=== PATIENT | female | born 1970 | race Caucasian/White ===

== ENCOUNTER 2017-10-05 11:51 | Emergency (ER) | payer SELFPAY ==
[2017-10-05 11:53] VITALS: BP 121/89
--- NOTE | 2017-10-05 14:08 | ED ---
Jordan Ash Angela, scribed for Flynn Garcia MD on 10/05/17 at 1203 . Skin Complaint - HPI Summary HPI Summary: This pt is a 47 y/o female presenting to [facility] c/o raised area on left wrist for the past 10 weeks. Pt reports she poked herself with an iris stem in August. She notes the stem was very rigid. Since then the area on her left wrist has been worsening. Pt states she messed with it 1 week ago and got pus out of it. Pt reports the area began to slowly swell. She notes this area is only painful with palpation. Pt went to [facility] and had X-rays done but was referred to the ED as they are unable to open her skin. She is a current smoker. - History of Current Complaint Chief Complaint: EDExtremityUpper Time Seen by Provider: 10/05/17 11:56 Stated Complaint: LEFT WRIST AND HAND INJURY Hx Obtained From: Patient Onset/Duration: Started Weeks Ago, Still Present Skin Exposure Onset/Duration: Weeks Ago Timing: Lasting Weeks Pain Intensity: 10 Pain Scale Used: 0-10 Numeric Skin Location: Arm - left wrist Character: Raised Aggravating Symptom(s): Nothing Alleviating Symptom(s): Nothing Associated Signs & Symptoms: Negative - Allergy/Home Medications Allergies/Adverse Reactions: Allergies Allergy/AdvReac Type Severity Reaction Status Date / Time No Known Allergies Allergy Verified 10/05/17 11:53 PMH/Surg Hx/FS Hx/Imm Hx Endocrine/Hematology History: Denies: Hx Diabetes Cardiovascular History: Denies: Hx Hypertension Infectious Disease History: No Infectious Disease History: Denies: Traveled Outside the [place] in Last 30 Days - Family History Known Family History: Negative: Cardiac Disease - Social History Alcohol Use: None Substance Use Type: Reports: None Smoking Status (MU): Smoker, Current Status Unknown Review of Systems Negative: Fever, Chills Cardiovascular: Negative Respiratory: Negative Gastrointestinal: Negative Genitourinary: Negative Skin: Other - raised area on left wrist. All Other Systems Reviewed And Are Negative: Yes Physical Exam - Summary Physical Exam Summary: Appearance: Well appearing, no pain distress Skin: warm, dry, reflects adequate perfusion. LUE: 3 mm firm keratotic papule on the volar surface of the left wrist without redness or warmth. Head/face: normal Eyes: EOMI, MYESHA ENT: normal Neck: supple, non-tender Respiratory: CTA, breath sounds present Cardiovascular: RRR, pulses symmetrical Abdomen: non-tender, soft Bowel: present Musculoskeletal: normal, strength/ROM intact Neuro: normal, sensory motor intact, A&Ox3 Triage Information Reviewed: Yes Vital Signs On Initial Exam: Initial Vitals Temp Pulse Resp BP Pulse Ox 97.6 F 85 17 121/89 99 10/05/17 11:52 10/05/17 11:52 10/05/17 11:52 10/05/17 11:52 10/05/17 11:52 Vital Signs Reviewed: Yes Procedures - Procedure Summary Procedure Summary: Wound care: Patient presents with foreign body reaction on the left dorsal wrist. This was cleaned with alcohol and unroofed with a blunt edge needle. Minimal amount pressure caused a woody foreign body to erupt from the skin. Skin was then dressed with bacitracin and a Band-Aid. Tolerated this well without competition. Diagnostics - Vital Signs Vital Signs Temp Pulse Resp BP Pulse Ox 10/05/17 11:52 97.6 F 85 17 121/89 99 - Laboratory Lab Statement: Any lab studies that have been ordered have been reviewed, and results considered in the medical decision making process. Re-Evaluation - Re-Evaluation First Eval Re-Evaluation Time: 12:07 Change: Improved Comment: Thorn removed from left wrist. Course/Dx - Course Course Of Treatment: I unroofed the area and a small foreign body came out. No evidence for infection. Assessment/Plan: Bedside US fails to demonstrate foreign body. - Diagnoses Provider Diagnoses: Foreign body in soft tissue Discharge - Sign-Out/Discharge Documenting (check all that apply): Discharge/Admit/Transfer - Discharge - Discharge Plan Condition: Improved Disposition: HOME Patient Education Materials: Soft Tissue Foreign Body in Children (ED) Referrals: Meghana Bolton MD [Primary Care Provider] - Additional Instructions: Dressed with bacitracin and a Band-Aid. Return if worse. - Billing Disposition and Condition Condition: IMPROVED Disposition: Home The documentation as recorded by the Jordan barros Angela accurately reflects the service I personally performed and the decisions made by , Flynn Garcia MD.
== END 2017-10-05 12:21 | disposition home or self-care (01) ==
LOC: ED 11:51
DX: S61.542A Puncture wound with foreign body of left wrist, initial encounter (principal); W45.8XXA Other foreign body or object entering through skin, initial encounter; Y92.9 Unspecified place or not applicable; F17.200 Nicotine dependence, unspecified, uncomplicated
CPT/HCPCS: 99281

== ENCOUNTER → 2018-03-09 18:59 | Emergency (ER) | payer OTHER ==
[~2018-03-09 18:59] MED LIST: Albuterol 2.5 MG/3 ML NEB.SOL* (0.083%) INH ONE; Albuterol HFA INHALER* 8 gm MDI INH ONE; Albuterol HFA INHALER* 8 gm MDI INH SCH; Albuterol/Ipratropium NEB.SOL* Albuterol 2.5 MG/Ipratropium 0.5 MG 3 ML INH ONE; Codeine TAB* 30 MG PO ONE; Ketorolac INJ* 30 MG/ML 1 ML VIAL IV PUSH ONE; Metoclopramide IV* 5 MG/ML 2 ML VIAL IV SLOW PU ONE; NS 0.9% 1000 ML* 1,000 ML IV ONE; diPHENhydraMINE PO* 50 MG PO ONE; methylPREDNISolone 125 MG* 2 ML VIAL IV ONE
[2018-03-09 20:54] LABS: ABS Basophils 0 10^3/ul (0-0.2); ABS Eosinophils 0 10^3/ul (0-0.6); ABS Lymphocytes 0.7 10^3/ul (1.0-4.8); ABS Monocytes 0.4 10^3/ul (0-0.8); ABS Neutrophils 7.5 10^3/ul (1.5-7.7); ABS Nucleated RBC 0 10^3/ul; Eosinophil % 0.3 %; Hematocrit 40 % (35-47); Lymphocyte % 8.4 %; Mean Corpuscular HGB Conc 35 g/dl (31-36); Mean Corpuscular Hemoglobin 35 pg (27-31); Mean Corpuscular Volume 100 fL (80-97); Mean Platelet Volume 8.2 fL (7.4-10.4); Nucleated Red Blood Cells % 0; Platelet Count 178 10^3/ul (150-450); Red Blood Count 3.99 10^6/ul (4.00-5.40); Red Cell Distribution Width 13 % (10.5-15); White Blood Count 8.7 10^3/ul (3.5-10.8)
[2018-03-09 21:11] LABS: EGFR Non-African American 95.2 (>60)
--- NOTE | 2018-03-09 21:18 | ED ---
Respiratory - HPI Summary HPI Summary: This patient is a 47 year old F presenting to [facility] accompanied by friend with a chief complaint of productive cough (yellow phlegm) that began 03/06/2018. The patient rates the pain 10/10 in severity. Symptoms aggravated by nothing. Symptoms alleviated by nothing. Patient reports difficulty sleeping, headache, and abdominal rash. Patient denies vomiting. - History of Current Complaint Chief Complaint: EDGeneral Stated Complaint: COUGH Time Seen by Provider: 03/09/18 21:06 Hx Obtained From: Patient Onset/Duration: Sudden Onset, Lasting Days, Still Present Timing: Constant Initial Severity: Severe Current Severity: Severe Pain Intensity: 10 Character: Cough (Productive) Sputum Amount: Swallowed by Patient Sputum Color: Yellow Aggravating Factor(s): Nothing Alleviating Factor(s): Nothing - Allergy/Home Medications Allergies/Adverse Reactions: Allergies Allergy/AdvReac Type Severity Reaction Status Date / Time No Known Allergies Allergy Verified 03/09/18 19:05 PMH/Surg Hx/FS Hx/Imm Hx Previously Healthy: No Endocrine/Hematology History: Denies: Hx Diabetes Cardiovascular History: Denies: Hx Hypertension Infectious Disease History: No Infectious Disease History: Denies: Traveled Outside the [place] in Last 30 Days - Family History Known Family History: Negative: Cardiac Disease - Social History Occupation: Employed Full-time Lives: With Family Alcohol Use: None Hx Substance Use: No Substance Use Type: Reports: None Hx Tobacco Use: Yes Smoking Status (MU): Current Every Day Smoker Review of Systems Positive: Other - Positive difficulty sleeping Negative: Vomiting Positive: Rash Positive: Headache All Other Systems Reviewed And Are Negative: Yes Physical Exam - Summary Physical Exam Summary: VITAL SIGNS: Reviewed. GENERAL: Patient is a well-developed and nourished female who is lying comfortable in the stretcher. Patient is not in any acute respiratory distress. HEAD AND FACE: No signs of trauma. No ecchymosis, hematomas or skull depressions. No sinus tenderness. EYES: PERRLA, EOMI x 2, No injected conjunctiva, no nystagmus. EARS: Hearing grossly intact. Ear canals and tympanic membranes are within normal limits. MOUTH: Oropharynx within normal limits. NECK: Supple, trachea is midline, no adenopathy, no JVD, no carotid bruit, no c- spine tenderness, neck with full ROM. CHEST: Symmetric, no tenderness at palpation LUNGS: Clear to auscultation bilaterally. No wheezing or crackles. CVS: Regular rate and rhythm, S1 and S2 present, no murmurs or gallops appreciated. ABDOMEN: Soft, non-tender. No signs of distention. No rebound no guarding, and no masses palpated. Bowel sounds are normal. EXTREMITIES: FROM in all major joints, no edema, no cyanosis or clubbing. NEURO: Alert and oriented x 3. No acute neurological deficits. Speech is normal and follows commands. SKIN: Dry and warm Triage Information Reviewed: Yes Vital Signs On Initial Exam: Initial Vitals Temp Pulse Resp BP Pulse Ox 97.3 F 120 20 127/81 96 03/09/18 19:04 03/09/18 19:04 03/09/18 19:04 03/09/18 19:04 03/09/18 19:04 Vital Signs Reviewed: Yes - [place] Coma Scale Best Eye Response: 4 - Spontaneous Best Motor Response: 6 - Obeys Commands Best Verbal Response: 5 - Oriented Coma Scale Total: 15 Diagnostics - Vital Signs Vital Signs Temp Pulse Resp BP Pulse Ox 03/09/18 19:04 97.3 F 120 20 127/81 96 - Laboratory Lab Results: Lab Results 03/09/18 03/09/18 03/09/18 Range/Units 20:37 20:37 20:37 WBC 8.7 (3.5-10.8) 10^3/ul RBC 3.99 L (4.00-5.40) 10^6/ul Hgb 14.0 (12.0-16.0) g/dl Hct 40 (35-47) % MCV 100 H (80-97) fL MCH 35 H (27-31) pg MCHC 35 (31-36) g/dl RDW 13 (10.5-15) % Plt Count 178 (150-450) 10^3/ul MPV 8.2 (7.4-10.4) fL Neut % (Auto) 85.8 % Lymph % (Auto) 8.4 % [place] % (Auto) 5.0 % Eos % (Auto) 0.3 % Baso % (Auto) 0.5 % Absolute Neuts (auto) 7.5 (1.5-7.7) 10^3/ul Absolute Lymphs (auto) 0.7 L (1.0-4.8) 10^3/ul Absolute Monos (auto) 0.4 (0-0.8) 10^3/ul Absolute Eos (auto) 0 (0-0.6) 10^3/ul Absolute Basos (auto) 0 (0-0.2) 10^3/ul Absolute Nucleated RBC 0 10^3/ul Nucleated RBC % 0 Sodium 131 L (135-145) mmol/L Potassium 3.5 (3.5-5.0) mmol/L Chloride 97 L (101-111) mmol/L Carbon Dioxide 25 (22-32) mmol/L Anion Gap 9 (2-11) mmol/L BUN 5 L (6-24) mg/dL Creatinine 0.66 (0.51-0.95) mg/dL Est GFR ( Amer) 115.2 (>60) Est GFR (Non-Af Amer) 95.2 (>60) BUN/Creatinine Ratio 7.6 L (8-20) Glucose 133 H (70-100) mg/dL Lactic Acid 0.6 (0.5-2.0) mmol/L Calcium 9.0 (8.6-10.3) mg/dL Total Bilirubin 0.40 (0.2-1.0) mg/dL AST 17 (13-39) U/L ALT 17 (7-52) U/L Alkaline Phosphatase 61 (34-104) U/L Total Protein 7.5 (6.4-8.9) g/dL Albumin 4.4 (3.2-5.2) g/dL Globulin 3.1 (2-4) g/dL Albumin/Globulin Ratio 1.4 (1-3) Result Diagrams: 03/09/18 20:37 03/09/18 20:37 Lab Statement: Any lab studies that have been ordered have been reviewed, and results considered in the medical decision making process. - Radiology Chest XR Radiology Interpretation Completed By: Radiologist Summary of Radiographic Findings: CXR reveals, per ED physician, no acute disease. ED physician has reviewed this radiology report. Maxillofacial CT Radiology Interpretation Completed By: Radiologist - Maxillofacial CT reveals, per radiologist, 1. No CT evidence of acute sinusitis. 2. Small retention cyst in the inferior left maxillary sinus. ED physician has reviewed this radiology report. - CT Brain CT CT Interpretation Completed By: Radiologist Summary of CT Findings: Brain CT reveals, per radiologist, no acute intracranial abnormality. ED physician has reviewed this radiology report. - EKG 2016 Cardiac Rate: NL EKG Rhythm: Sinus Rhythm - [address] Segment: Non-Specific Summary of EKG Findings: An EKG taken at 2016 reveals normal sinus rhythm at 95 BPM with nonspecific T wave changes in the inferior leads. Re-Evaluation - Re-Evaluation First Eval Re-Evaluation Time: 22:38 Change: Improved Comment: Discussed results and plan of care with patient. Disposition - Course Course Of Treatment: This patient is a 47 year old F presenting to [facility] accompanied by friend with a chief complaint of productive cough (yellow phlegm ) that began 03/06/2018. Physical Exam Findings: Nml. An EKG taken at 2016 reveals normal sinus rhythm at 95 BPM with nonspecific T wave changes in the inferior leads. CXR reveals, per ED physician, no acute disease. Brain CT reveals, per radiologist, no acute intracranial abnormality. Maxillofacial CT reveals, per radiologist, 1. No CT evidence of acute sinusitis. 2. Small retention cyst in the inferior left maxillary sinus. Bloodwork obtained. In the ED course the patient was given albuterol, duoneb, codeine, ketorolac, fluids, Reglan, and Benadryl. Patient will be discharged with follow up from PCP. The patient is agreeable with this plan. - Diagnoses Provider Diagnoses: Bronchitis Discharge - Sign-Out/Discharge Documenting (check all that apply): Patient Departure - Discharge home - Discharge Plan Condition: Stable Disposition: HOME Prescriptions: Albuterol HFA INHALER* [Ventolin HFA Inhaler*] 2 puff INH Q6H PRN #1 mdi PRN Reason: Sob/Wheezing Codeine TAB* [Codeine Tab*] 30 mg PO Q6H PRN #14 tab MDD 4 PRN Reason: Cough Levofloxacin TAB* [Levaquin TAB*] 750 mg PO DAILY #7 tab predniSONE TAB* [Deltasone 20 MG TAB*] 40 mg PO DAILY #10 tab Patient Education Materials: Albuterol (By breathing), Acute Bronchitis (ED) Referrals: Meghana Bolton MD [Primary Care Provider] - 2 Days Additional Instructions: NO SMOKING RETURN TO THE EMERGENCY DEPARTMENT FOR NEW OR WORSENING SYMPTOMS - Billing Disposition and Condition Condition: STABLE Disposition: Home - Attestation Statements Document Initiated by Gian: Yes Documenting Scribe: Lali Grider Provider For Whom Scribe is Documenting (Include Credential): Dr. Jeimy Cardenas MD Scribe Attestation: I, Lali Grider, scribed for Dr. Jeimy Cardenas MD on 03/10/18 at 0632. Scribe Documentation Reviewed: Yes Provider Attestation: The documentation as recorded by the jesiibeLali accurately reflects the service I personally performed and the decisions made by me, Dr. Jeimy Cardenas MD Status of Scribe Document: Viewed
[2018-03-09 23:21] VITALS: BP 112/79
== END | disposition home or self-care (01) ==
LOC: ED 18:59
DX: J40 Bronchitis, not specified as acute or chronic (principal); R05 Cough; R21 Rash and other nonspecific skin eruption; R51 Headache; F17.210 Nicotine dependence, cigarettes, uncomplicated
CPT/HCPCS: 36415; 70450; 70486; 71046; 80053; 83605; 85025; 87040; 93005; 96361; 96374; 96375; 99284; A9270-GY; J1885; J2765; J2930

== ENCOUNTER 2019-01-04 00:04 | Emergency (ER) | payer OTHER ==
[2019-01-04 01:15] LABS: Urine Appearance Clear; Urine Bacteria Absent (Absent); Urine Bilirubin Negative (Negative); Urine Blood 1+ (Negative); Urine Color Straw; Urine Glucose Negative (Negative); Urine Ketones Negative (Negative); Urine Nitrite Negative (Negative); Urine Protein Negative (Negative); Urine Red Blood Cell Trace(0-2/hpf) (Absent); Urine Specific Gravity 1.002 (1.010-1.030); Urine Squamous Epithelial Cell Present (Absent); Urine Urobilinogen Negative (Negative); Urine White Blood Cell Absent (Absent)
[2019-01-04 01:29] LABS: Urine Benzodiazepine Screen None Detected (None Detect); Urine Opiates Screen None Detected (None Detect)
[2019-01-04 01:45] LABS: ABS Basophils 0.1 10^3/ul (0-0.2); ABS Eosinophils 0.2 10^3/ul (0-0.6); ABS Lymphocytes 2.6 10^3/ul (1.0-4.8); ABS Monocytes 0.5 10^3/ul (0-0.8); ABS Neutrophils 3.6 10^3/ul (1.5-7.7); Eosinophil % 2.5 %; Hematocrit 43 % (35-47); Lymphocyte % 37.3 %; Mean Corpuscular HGB Conc 35 g/dL (31-36); Mean Corpuscular Hemoglobin 35 pg (27-31); Mean Corpuscular Volume 102 fL (80-97); Mean Platelet Volume 7.9 fL (7.4-10.4); Platelet Count 268 10^3/uL (150-450); Red Blood Count 4.25 10^6 /uL (3.70-4.87); Red Cell Distribution Width 13 % (10-15); White Blood Count 6.9 10^3/uL (3.5-10.8)
--- NOTE | 2019-01-04 01:51 | ED ---
Psychiatric Complaint - HPI Summary HPI Summary: Pt is a 48 y/o F presenting to the ED brought in by [facility] on a 9.41. She states her life has been hard recently, including things that her has said to her that has made her very angry. She was on the phone with her friend Bekah, drinking alcohol, and told her that she had a blade near her, was writing an email to her son, and admitted to some thoughts of suicide. Bekah then called the police for the pt. She denies any physical symptoms, such as myalgia or vomiting. She notes prior attempts of suicide, though she cannot remember when the last time was. - History Of Current Complaint Chief Complaint: EDSuicidal Time Seen by Provider: 01/04/19 00:50 Accompanied By: alone Hx Obtained From: Patient Onset/Duration: Gradual Onset, Lasting Hours, Still Present Timing: Hours Severity Initially: Moderate Severity Currently: Moderate Character: Depressed, Angry Aggravating Factor(s): Recent Stress Alleviating Factor(s): Nothing Associated Signs And Symptoms: Positive: Hostile Has Suicidal: Reports: Thoughts, Has Prior Attempt(s) - Allergies/Home Medications Allergies/Adverse Reactions: Allergies Allergy/AdvReac Type Severity Reaction Status Date / Time No Known Allergies Allergy Verified 03/09/18 19:05 PMH/Surg Hx/FS Hx/Imm Hx Previously Healthy: Yes Endocrine/Hematology History: Denies: Hx Diabetes Cardiovascular History: Denies: Hx Hypertension Respiratory History: Denies: Hx Asthma, Hx Chronic Obstructive Pulmonary Disease (COPD) Psychiatric History: Reports: Hx Suicide Attempt Infectious Disease History: Denies: Traveled Outside the [place] in Last 30 Days - Family History Known Family History: Negative: Cardiac Disease - Social History Alcohol Use: None Hx Substance Use: No Substance Use Type: Reports: None Hx Tobacco Use: Yes Smoking Status (MU): Current Every Day Smoker Review of Systems Negative: Vomiting Negative: Myalgia Positive: Depressed, Other - SI All Other Systems Reviewed And Are Negative: Yes Physical Exam - Summary Physical Exam Summary: Pt is a 48 y/o F presenting to the ED brought in by [facility] on a 9.41. She states her life has been hard recently, including things that her has said to her that has made her very angry. She was on the phone with her friend Bekah, drinking alcohol, and told her that she had a blade near her, was writing an email to her son, and admitted to some thoughts of suicide. She denies any physical symptoms, such as myalgia or vomiting. Triage Information Reviewed: Yes Vital Signs On Initial Exam: Initial Vitals Temp Pulse Resp BP Pulse Ox 97.9 F 116 16 129/89 98 01/04/19 01:06 01/04/19 01:06 01/04/19 01:06 01/04/19 01:06 01/04/19 01:06 Vital Signs Reviewed: Yes Procedures - Sedation Patient Received Moderate/Deep Sedation with Procedure: No Diagnostics - Vital Signs Vital Signs Temp Pulse Resp BP Pulse Ox 01/04/19 01:06 97.9 F 116 16 129/89 98 - Laboratory Lab Results: Lab Results 01/04/19 01/04/19 01/04/19 Range/Units 00:57 00:57 01:37 WBC 6.9 (3.5-10.8) 10^3/uL RBC 4.25 (3.70-4.87) 10^6 /uL Hgb 15.0 (12.0-16.0) g/dL Hct 43 (35-47) % MCV 102 H (80-97) fL MCH 35 H (27-31) pg MCHC 35 (31-36) g/dL RDW 13 (10-15) % Plt Count 268 (150-450) 10^3/uL MPV 7.9 (7.4-10.4) fL Neut % (Auto) 52.6 % Lymph % (Auto) 37.3 % [place] % (Auto) 6.8 % Eos % (Auto) 2.5 % Baso % (Auto) 0.8 % Absolute Neuts (auto) 3.6 (1.5-7.7) 10^3/ul Absolute Lymphs (auto) 2.6 (1.0-4.8) 10^3/ul Absolute Monos (auto) 0.5 (0-0.8) 10^3/ul Absolute Eos (auto) 0.2 (0-0.6) 10^3/ul Absolute Basos (auto) 0.1 (0-0.2) 10^3/ul Absolute Nucleated RBC 0.0 10^3/ul Nucleated RBC % 0.0 Urine Color Straw Urine Appearance Clear Urine pH 5.0 (5-9) Ur Specific [place] 1.002 L (1.010-1.030) Urine Protein Negative (Negative) Urine Ketones Negative (Negative) Urine Blood 1+ A (Negative) Urine Nitrate Negative (Negative) Urine Bilirubin Negative (Negative) Urine Urobilinogen Negative (Negative) Ur Leukocyte Esterase Negative (Negative) Urine WBC (Auto) Absent (Absent) Urine RBC (Auto) Trace(0-2/hpf) (Absent) Ur Squamous Epith Cells Present A (Absent) Urine Bacteria Absent (Absent) Urine Glucose Negative (Negative) Urine Opiates Screen None detected (None Detect) Ur Barbiturates Screen None detected (None Detect) Ur Phencyclidine Scrn None detected (None Detect) Ur Amphetamines Screen None detected (None Detect) U Benzodiazepines Scrn None detected (None Detect) Urine Cocaine Screen None detected (None Detect) U Cannabinoids Screen None detected (None Detect) Result Diagrams: 01/04/19 01:37 01/04/19 01:37 Lab Statement: Any lab studies that have been ordered have been reviewed, and results considered in the medical decision making process. Course/Dx - Course Course Of Treatment: Patient is here with alcohol intoxication and suicidal ideation. Patient was writing a suicide note to her son with a plan of slitting her wrists when her friend intervened and called the police. Patient is brought in on at 941. Patient was clearly intoxicated upon arrival with an alcohol level of 191. Patient is medically cleared after she sobered up. Patient signed out to the oncoming physician pending mental health evaluation. - Differential Dx/Clinical Impression Provider Diagnosis: Alcohol intoxication, Suicidal thoughts Discharge ED - Sign-Out/Discharge Documenting (check all that apply): Sign-Out Patient - pend E Signing out patient TO: Jewel Michelle - Discharge Plan Condition: Stable Referrals: Meghana Bolton MD [Primary Care Provider] - - Billing Disposition and Condition Condition: STABLE - Attestation Statements Document Initiated by Scribe: Yes Documenting Scribe: Pamela Pulido Provider For Whom Gian is Documenting (Include Credential): Sinan Mejia MD. Scribe Attestation: Pamela Ash, scribed for Sinan Mejia MD. on 01/04/19 at 0655. Scribe Documentation Reviewed: Yes Provider Attestation: The documentation as recorded by the scribe, Pamela Pulido accurately reflects the service I personally performed and the decisions made by me, Sinan Mejia MD. Status of Jacquiibceline Document: Viewed
[2019-01-04 02:03] LABS: ALT 22 U/L (7-52); AST 23 U/L (13-39); Albumin 4.7 g/dL (3.2-5.2); Albumin/Globulin Ratio 1.6 (1-3); Alkaline Phosphatase 63 U/L (34-104); Anion Gap 8 mmol/L (2-11); BUN/Creatinine Ratio 9.2 (8-20); Blood Urea Nitrogen 7 mg/dL (6-24); CO2 Carbon Dioxide 26 mmol/L (22-32); Calcium 9.5 mg/dL (8.6-10.3); Chloride 106 mmol/L (101-111); EGFR African American 97.5 (>60); EGFR Non-African American 80.6 (>60); Globulin 2.9 g/dL (2-4); Glucose 115 mg/dL (70-100); Potassium 4.3 mmol/L (3.5-5.0); Sodium 140 mmol/L (135-145); Total Protein 7.6 g/dL (6.4-8.9)
[2019-01-04 02:08] LABS: HCG Pregnancy < 0.60 mIU/mL
[2019-01-04 02:39] LABS: Alcohol 191 mg/dL (<10)
--- NOTE | 2019-01-04 07:12 | ED ---
Progress - Progress Note Progress Note: Pt is a sign-out from Dr. Mejia at 07:00 on 01/04/19; shift change. Pt is cleared by [facility]. At 09:19, associate store manager reports the pt's case was reviewed by Dr. Mcbride. Pt will be discharged home with a diagnosis of distubance of mood and conduct, alcohol intoxication, and substance abuse disorder. Course/Dx - Course Course Of Treatment: Patient is here with alcohol intoxication and suicidal ideation. Patient was writing a suicide note to her son with a plan of slitting her wrists when her friend intervened and called the police. Patient is brought in on at 941. Patient was clearly intoxicated upon arrival with an alcohol level of 191. Patient is medically cleared after she sobered up. Patient signed out to the oncoming physician pending mental health evaluation. - Diagnoses Provider Diagnoses: Alcohol intoxication, Suicidal thoughts Discharge ED - Sign-Out/Discharge Documenting (check all that apply): Patient Departure - Discharge, Receiving Sign-Out Receiving patient FROM: Sinan Mejia - 07:00 - Discharge Plan Condition: Stable Disposition: HOME Referrals: Meghana Bolton MD [Primary Care Provider] - - Billing Disposition and Condition Condition: STABLE Disposition: Home - Attestation Statements Document Initiated by Scribe: Yes Documenting Scribe: Ayana Gonzalez Provider For Whom Jacquiibceline is Documenting (Include Credential): Jewel Michelle MD. Scribe Attestation: Ayana Ash, scribed for Jewel Michelle MD. on 01/04/19 at 1001. Scribe Documentation Reviewed: Yes Provider Attestation: The documentation as recorded by the Ayana barros accurately reflects the service I personally performed and the decisions made by , Jewel Michelle MD. Status of Scribe Document: Viewed
[2019-01-04 09:34] VITALS: BP 119/83
== END 2019-01-04 09:20 | disposition home or self-care (01) ==
LOC: ED 00:04
DX: R45.851 Suicidal ideations (principal); F10.929 Alcohol use, unspecified with intoxication, unspecified; F17.200 Nicotine dependence, unspecified, uncomplicated; Z79.899 Other long term (current) drug therapy
CPT/HCPCS: 36415; 80053; 80307; 80320; 81003; 81015; 84702; 85025; 99285; G0480

== ENCOUNTER 2020-07-23 10:20 | Inpatient (IN) ==
[2020-07-23] MEDS ORDERED: NS 0.9% 1000 ml BAG 1,000 ML IV ONE ×2 (10:39→10:50)
[2020-07-23] MEDS ORDERED: Rocuronium 50 mg VIAL 10 mg/ml 5 ml VIAL (50 mg) ONE (10:50)
[2020-07-23] MEDS ORDERED: Succinylcholine 200 mg VIAL 20 mg/ml 10 ml VIAL (200 mg) ONE ×2 (10:50→10:57)
[2020-07-23] MEDS ORDERED: Etomidate 40 mg/20 ml (2 MG/ML) 20 ml VIAL (40 mg) ONE (10:57)
[2020-07-23] MEDS ORDERED: Propofol 10 mg/ml 100 ML BTL 100 ML ONE ×2 (11:03→18:33)
[2020-07-23] MEDS ORDERED: Succinylcholine 200 mg VIAL 20 mg/ml 10 ml VIAL (200 mg) IV ONE (11:04)
[2020-07-23] MEDS ORDERED: Etomidate 20 mg/10 ml 2 MG/ML 10 ml VIAL IV ONE (11:04)
[2020-07-23] MEDS: Propofol 10 mg/ml 100 ML BTL 100 ML IV ONE ×2 (11:08→14:10)
[2020-07-23 11:15] LABS: ABS Basophils 0.1 10^3/ul (0-0.2); ABS Eosinophils 0.1 10^3/ul (0-0.6); ABS Lymphocytes 1.6 10^3/ul (1.0-4.8); ABS Monocytes 0.4 10^3/ul (0-0.8); ABS Neutrophils 5.6 10^3/ul (1.5-7.7); Eosinophil % 0.8 %; Hematocrit 42 % (35-47); Lymphocyte % 20.2 %; Mean Corpuscular HGB Conc 36 g/dL (31-36); Mean Corpuscular Hemoglobin 36 pg (27-31); Mean Corpuscular Volume 100 fL (80-97); Mean Platelet Volume 7.8 fL (7.4-10.4); Platelet Count 279 10^3/uL (150-450); Red Blood Count 4.19 10^6 /uL (3.70-4.87); Red Cell Distribution Width 13 % (10-15); White Blood Count 7.7 10^3/uL (3.5-10.8)
[2020-07-23 11:21] LABS: Albumin 4.6 g/dL (3.2-5.2); Albumin/Globulin Ratio 1.5 (1-3); Calcium 9.7 mg/dL (8.6-10.3); EGFR African American 99.7 (>60); EGFR Non-African American 82.4 (>60); Potassium 3.1 mmol/L (3.5-5.0); Total Bilirubin 0.5 mg/dL (0.2-1.0); Total Protein 7.6 g/dL (6.4-8.9)
[2020-07-23 11:56] LABS: Urine Appearance Cloudy; Urine Bilirubin Negative (Negative); Urine Blood Negative (Negative); Urine Color Amber; Urine Glucose Negative (Negative); Urine Ketones 1+ (Negative); Urine Nitrite Negative (Negative); Urine Protein 2+(100 mg/dL) (Negative); Urine Specific Gravity 1.023 (1.002-1.030); Urine Urobilinogen Negative (Negative)
[2020-07-23 12:05] LABS: Urine Bacteria Absent (Absent); Urine Red Blood Cell Absent (Absent); Urine Squamous Epithelial Cell Present (Absent); Urine White Blood Cell Trace(0-5/hpf) (Absent)
[2020-07-23 12:15] LABS: Urine Benzodiazepine Screen None Detected (None Detect); Urine Cannabinoids Screen None Detected (None Detect); Urine Opiates Screen Presumptive Positive (None Detect)
[2020-07-23] MEDS ORDERED: Chlorhexidine MOUTHWASH 0.12% 15 ML UDC TOPICAL SCH (14:00)
[2020-07-23] MEDS: Enoxaparin 40 MG/0.4 ML SYR SUBCUT SCH (14:10)
[2020-07-23] MEDS ORDERED: NS 0.9% 500 ml BAG 500 ML IV ONE (15:09)
[2020-07-23 15:23] LABS: INR 0.93 (0.82-1.09)
[2020-07-23 15:47] LABS: Blood Urea Nitrogen 7 mg/dL (6-24); CO2 Carbon Dioxide 25 mmol/L (22-32); Calcium 8.9 mg/dL (8.6-10.3); Chloride 104 mmol/L (101-111); EGFR African American 109.9 (>60); EGFR Non-African American 90.9 (>60); Glucose 80 mg/dL (70-100); Phosphorus 3.8 mg/dL (2.5-5.0); Sodium 139 mmol/L (135-145)
[2020-07-23 16:37] LABS: Anion Gap 10 mmol/L (2-11)
[2020-07-23] MEDS: NS 0.9% 1000 ml BAG 1,000 ML IV SCH (17:15)
[2020-07-23] MEDS ORDERED: Magnesium Sulfate 2 gm BAG 2 GM/50 ML BAG IVPB ONE (20:00)
[2020-07-23] MEDS: Propofol 10 mg/ml 100 ML BTL 100 ML IV SCH (21:40)
[2020-07-23] MEDS: Famotidine IV 10 MG/ML 2 ml VIAL (20 mg) IV SLOW PU SCH (22:23)
[2020-07-23] MEDS: Chlorhexidine MOUTHWASH 0.12% 15 ML UDC TOPICAL SCH (22:23)
[2020-07-24 00:33] LABS: Acetaminophen < 15 mcg/mL; Salicylate < 2.50 mg/dL (<30)
[2020-07-24] MEDS: Chlorhexidine MOUTHWASH 0.12% 15 ML UDC TOPICAL SCH ×4 (01:16→13:03)
[2020-07-24] MEDS: NS 0.9% 1000 ml BAG 1,000 ML IV SCH (01:17)
[2020-07-24 06:08] LABS: ABS Eosinophils 0.1 10^3/ul (0-0.6); ABS Lymphocytes 1.2 10^3/ul (1.0-4.8); ABS Monocytes 0.6 10^3/ul (0-0.8); ABS Neutrophils 7.4 10^3/ul (1.5-7.7); Eosinophil % 0.8 %; Hematocrit 35 % (35-47); Hemoglobin 12.2 g/dL (12.0-16.0); Mean Corpuscular HGB Conc 35 g/dL (31-36); Mean Corpuscular Hemoglobin 36 pg (27-31); Mean Corpuscular Volume 101 fL (80-97); Mean Platelet Volume 8.4 fL (7.4-10.4); Platelet Count 202 10^3/uL (150-450); Red Blood Count 3.42 10^6 /uL (3.70-4.87); Red Cell Distribution Width 13 % (10-15); White Blood Count 9.3 10^3/uL (3.5-10.8)
[2020-07-24 06:15] LABS: INR 1.03 (0.82-1.09)
[2020-07-24 06:38] LABS: Albumin 3.6 g/dL (3.2-5.2); Albumin/Globulin Ratio 1.7 (1-3); Calcium 8.1 mg/dL (8.6-10.3); EGFR African American 109.9 (>60); EGFR Non-African American 90.9 (>60); Globulin 2.1 g/dL (2-4); Magnesium 2.1 mg/dL (1.9-2.7); Phosphorus 3.7 mg/dL (2.5-5.0); Potassium 3.2 mmol/L (3.5-5.0); Total Bilirubin 0.4 mg/dL (0.2-1.0); Total Protein 5.7 g/dL (6.4-8.9)
[2020-07-24 06:43] LABS: CKMB ng/mL 1.3 ng/mL (0.6-6.3)
[2020-07-24] MEDS ORDERED: Lactated Ringers 1000 ml BAG 1,000 ML IV SCH (08:00)
[2020-07-24] MEDS: Famotidine IV 10 MG/ML 2 ml VIAL (20 mg) IV SLOW PU SCH (08:08)
[2020-07-24] MEDS: Potassium Chloride LIQUID 20 MEQ/15 ML LIQUID PO SCH ×2 (08:18→13:46)
[2020-07-24] MEDS ORDERED: Perflutren Lipid Microsphere 3 ML VIAL ONE (08:49)
[2020-07-24] MEDS: Propofol 10 mg/ml 100 ML BTL 100 ML IV SCH (09:14)
[2020-07-24] MEDS ORDERED: Potassium Chlor 20 meq TAB.ER PO ONE (13:47)
[2020-07-24] MEDS ORDERED: Potassium Chlor 20 meq TAB.ER PO SCH (14:00)
[2020-07-24] MEDS: Enoxaparin 40 MG/0.4 ML SYR SUBCUT SCH (14:17)
[2020-07-24 19:05] LABS: Calcium 8.8 mg/dL (8.6-10.3); Potassium 3.8 mmol/L (3.5-5.0)
[2020-07-24 20:31] LABS: EGFR African American 102.9 (>60); EGFR Non-African American 85.1 (>60)
[2020-07-24 20:42] VITALS: BP 125/75
== END 2020-07-24 21:30 | DRG 812 ==
LOC: ED 10:20 → ICU 11:18
PROVIDERS: ADMIT Internal Medicine Critical Care Medicine; ATTEND Student in an Organized Health Care Education/Training Program

== ENCOUNTER 2020-07-24 17:47 | Inpatient (IN) ==
[2020-07-24] MEDS ORDERED: Al Hydrox/Mg Hydrox/Simet LIQ 30 ML UDC PO PRN (18:18)
[2020-07-24] MEDS ORDERED: Nicotine GUM 2MG FRUIT FLAVOR PO PRN (18:18)
[2020-07-26] MEDS ORDERED: Benzocaine/Menthol LOZ PO PRN (01:13)
[2020-07-26 08:07] VITALS: BP 111/68
[2020-07-26 08:32] LABS: HDL Cholesterol 52.3 mg/dL
== END 2020-07-26 11:40 | disposition home or self-care (01) | DRG 754 ==
LOC: BSU 21:55
PROVIDERS: ADMIT Psychiatry & Neurology Psychiatry; ATTEND Psychiatry & Neurology Psychiatry